=== PATIENT | female | born 1975 | race Two or more races ===

== ENCOUNTER 2023-05-23 22:21 | Emergency (ER) | payer MEDICAID ==
[~2023-05-23] VITALS: Ht 154.9 cm; Wt 68.0 kg
[2023-05-23 22:34] VITALS: TEMP 98.2
[2023-05-23] MEDS ORDERED: FLUORESCEIN SODIUM 1 MG STRIP ONE (23:39)
[2023-05-23] MEDS ORDERED: PROPARACAINE HCL 0.5% 15 ML OPHTHALMIC SOLUTION OU ONE (23:45)
[2023-05-23] MEDS ORDERED: FLUORESCEIN SODIUM 1 MG STRIP OU ONE (23:45)
[2023-05-23] MEDS ORDERED: BACITRACIN/POLYMYXIN B 3.5 GM OPHTHALMIC OINTMENT OD ONE (23:45)
[2023-05-23] MEDS ORDERED: PROPARACAINE HCL 0.5% 15 ML OPHTHALMIC SOLUTION OD ONE (23:45)
[2023-05-24 00:12] VITALS: BP 143/102; PULSE 72; RESP 18
== END 2023-05-24 00:21 | disposition home or self-care (01) ==
LOC: EMS 22:22
DX: H10.211 Acute toxic conjunctivitis, right eye (principal); I10 Essential (primary) hypertension; Z98.890 Other specified postprocedural states
CPT/HCPCS: 99283